=== PATIENT | female | born 2000 | race Two or more races ===

== ENCOUNTER 2018-02-27 13:56 | Emergency (ER) | payer OTHER ==
[~2018-02-27] VITALS: Ht 162.6 cm; Wt 49.0 kg
[~2018-02-27 13:56] MED LIST: ZITHROMAX TRI-500 MG PO
== END 2018-02-27 15:21 | disposition home or self-care (01) ==
LOC: ER 13:56
DX: J32.8 Other chronic sinusitis (principal)

== ENCOUNTER 2018-07-19 13:40 | Outpatient (CLI) | payer OTHER | END 2018-07-19 14:00 | disposition home or self-care (01) | LOC: SONOGRAMA 13:40 → RAD 13:40 → SONOGRAMA 14:00 | DX: M79.641 Pain in right hand (principal); M79.642 Pain in left hand ==

== ENCOUNTER 2024-09-21 18:35 | Emergency (ER) | payer OTHER ==
[~2024-09-21] VITALS: Ht 162.6 cm; Wt 45.4 kg
[2024-09-21 22:17] LABS: URINE APPEARANCE Cloudy; URINE BILIRRUBIN Small (NEGATIVE); URINE BLOOD Moderate; URINE COLOR Red; URINE GLUCOSE Negative (NEGATIVE); URINE KETONE Negative (NEGATIVE); URINE LEUKOCYTE Moderate; URINE NITRATE Positive
[2024-09-21 22:20] LABS: HEMATOCRIT 38.1 % (36.0-45.00); HEMOGLOBIN 13.1 g/dL (12.0-15.00); MEAN CELL VOLUME 89.8 fL (80.00-100.00); MEAN CORPUSCULAR HEMOGLOBIN 30.8 pg (27.00-32.0); MEAN CORPUSCULAR HGB CONC 34.3 g/dl (32.0-36.0); PLATELET COUNT 235 K/uL (150-450); RED BLOOD COUNT 4.24 M/uL (4.00-6.00); RED CELL DISTRIBUTION WIDTH 14.4 % (11.5-14.5)
[2024-09-21 22:21] LABS: URINE BACTERIA 1216.6 uL (0.0-1933); URINE EPITHELIAL CELLS 64.4 uL (0.0-38.8); URINE RBC 263.3 uL (0.0-20.8); URINE WBC 313.1 uL (0.0-23.2)
[2024-09-21 22:32] LABS: URINE CAST 0.14 uL (0.0-1.40); URINE PROTEIN 100 (NEGATIVE)
[2024-09-21 22:34] LABS: ALBUMIN 4.1 gm/dL (3.4-5.0); BILIRUBIN TOTAL 1.03 mg/dL (0.3-1.2); CALCIUM 9.6 mg/dL (8.5-10.1); CREATININE SERUM 0.73 mg/dL (0.55-1.02); GFR 96.37; GLOBULINA 5.2 G/DL (2.4-3.5); POTASSIUM 3.55 mEq/L (3.5-5.1); TOTAL PROTEIN 9.3 gm/dL (6.4-8.2)
[2024-09-21] MEDS ORDERED: CEFTRIAXONE SODIUM 2,000 MG VIAL IV ONE (23:00)
[2024-09-21] MEDS ORDERED: CEFTRIAXONE SODIUM 2,000 MG VIAL ONE (23:08)
[2024-09-22] MEDS ORDERED: ACETAMINOPHEN 500 MG GEL..CAP PO ONE (01:20)
[2024-09-22] MEDS ORDERED: KETOROLAC TROMETHAMINE 10 MG TABLET PO STA (02:14)
[2024-09-22] MEDS ORDERED: CEPHALEXIN500 MG PO (02:59)
[2024-09-22] MEDS ORDERED: KETO10TA2 PO (02:59)
[2024-09-22] MEDS ORDERED: KETOROLAC TROMETHAMINE 10 MG TABLET PO ONE (03:06)
== END 2024-09-22 03:16 ==
LOC: ER 18:38
PROVIDERS: Preventive Medicine Public Health & General Preventive Medicine
DX: N39.0 Urinary tract infection, site not specified (principal)
CPT/HCPCS: 36415; 74177; Q9965